=== PATIENT | male | born 1990 | race Caucasian/White ===

== ENCOUNTER 2019-01-24 12:42 | Emergency (ER) | payer OTHER ==
[~2019-01-24] VITALS: Ht 160 cm; Wt 90.9 kg
[2019-01-24 14:53] VITALS: BP 128/86
== END 2019-01-24 14:57 | disposition home or self-care (01) ==
LOC: EMS 12:48
DX: T22.112A Burn of first degree of left forearm, initial encounter (principal); X08.8XXA Exposure to other specified smoke, fire and flames, initial encounter; Y93.89 Activity, other specified; Y92.89 Other specified places as the place of occurrence of the external cause; Y99.8 Other external cause status